=== PATIENT | female | born 1985 | race Caucasian/White ===

== ENCOUNTER → 2018-04-02 | Outpatient (CLI) | payer BC ==
--- NOTE | 2018-04-02 13:15 | DIAGNOSTIC IMAGING REPORT ---
LUMBAR SPINE 2 OR 3 VIEWS CLINICAL HISTORY: 32 years-old Female presenting with LUMBAR SPONDYLOSIS, status post lumbar fusion. TECHNIQUE: Frontal, lateral, and coned in lateral views of the lumbar spine were obtained. COMPARISON: None. FINDINGS: Bilateral transpedicular screw jose fixation of L5-S1 with interbody spacer. No apparent hardware complication. Normal lumbar lordosis. Vertebral bodies maintain normal height and alignment. Intervertebral disc heights preserved at the nonoperative levels. Mild facet arthropathy suspected in the lower lumbar spine. No radiographic evidence of significant neural foraminal narrowing. No advanced degenerative change. IMPRESSION: Posterior lumbar fusion at L5-S1 without radiographic evidence of complication. No acute osseous injury or advanced degenerative change. Electronically signed by: Dru Jackson M.D. 04/02/2018 1:14 PM Dictated Date/Time: 04/02/2018 1:12 PM
== END ==
LOC: C.RAD1850 12:41
PROVIDERS: ATTEND Nurse Practitioner Family
DX: M47.896 Other spondylosis, lumbar region (principal); Z98.1 Arthrodesis status